=== PATIENT | male | born 1950 | race Caucasian/White ===

== ENCOUNTER 2020-01-06 14:09 | Outpatient (CLI) | payer MEDICARE ==
--- NOTE | 2020-01-06 15:30 | ULT ---
EXAM: Left lower extremity venous Doppler US HISTORY: left lower extremity edema and pain FINDINGS: Grayscale, color-flow, Doppler evaluation, spectral analysis of the left lower extremity venous struc tures is performed with 2-D imaging. The left common femoral, superficial femoral, popliteal, posterior tibial, proximal greater saphenous and profunda femoral veins are imaged. There is normal luminal compressibility, flow, and augmentation the visualized deep venous structures of the left lower extremity. IMPRESSION: No evidence of a deep vein thrombosis in the left lower extremity.
== END 2020-01-06 14:10 | disposition home or self-care (01) ==
LOC: BICULT 14:09
DX: M79.89 Other specified soft tissue disorders (principal)

== ENCOUNTER 2021-06-18 15:22 | Outpatient (CLI) | payer MEDICARE | END 2021-06-18 15:23 | disposition home or self-care (01) | LOC: RAD-FRANK 15:22 | PROVIDERS: ATTEND Nurse Practitioner Family | DX: U07.1 COVID-19 (principal); R91.8 Other nonspecific abnormal finding of lung field | CPT/HCPCS: 71046 ==

== ENCOUNTER 2022-12-06 09:22 | Outpatient (CLI) | payer MEDICARE | END 2022-12-06 09:23 | disposition home or self-care (01) | LOC: RAD-FRANK 09:22 | PROVIDERS: ATTEND Nurse Practitioner Family | DX: M25.521 Pain in right elbow (principal) ==

== ENCOUNTER 2023-09-22 18:07 | Emergency (ER) | payer MEDICARE ==
[2023-09-22 19:16] LABS: #Eosinphils 0.1 thou/uL (0.0-0.7); #Monocytes 0.6 thou/uL (0.11-0.59); #Neutrophils 4.6 thou/uL (1.40-6.50); %Basophils 0.3 % (0.0-1.0); %Eosinophils 1.4 % (0.0-10.0); %Lymphocytes 9.2 % (21.0-51.0); %Monocytes 10.1 % (0.0-10.0); %Neutrophils 78.5 % (42.0-75.0); Hematocrit 45.6 % (42.0-52.0); Hemoglobin 15.2 g/dL (14.0-18.0); Mean Corpuscular HGB CONC 33.3 g/dL (32.0-36.0); Mean Corpuscular Volume 93.1 fl (78.0-98.0); Mean Platelet Volume 11.2 fL (7.4-10.4); Platelet Count 150 10x3/uL (130-400); White Blood Cell (WBC) Count 5.8 10x3/uL (4.8-10.8)
[2023-09-22 19:41] LABS: ALT (SGPT) 35 U/L (8-55); AST (SGOT) 36 U/L (5-34); Albumin 3.8 g/dL (3.4-4.8); Alkaline Phosphatase 60 U/L (40-110); Anion Gap 14 mmol/L (10-20); BUN (Urea Nitrogen) 23 mg/dL (8.4-25.7); Bilirubin, Total 0.4 mg/dL (0.2-1.2); Calc. Creatinine Clearance 0 mL/min (70-130); Calcium 9.3 mg/dL (7.8-10.44); Carbon Dioxide 25 mmol/L (23-31); Chloride 102 mmol/L (98-107); Estimated GFR 63; Globulin 2.3 g/dL (2.4-3.5); Glucose 132 mg/dL (83-110); Lipase 30 U/L (8-78); Magnesium 1.9 mg/dL (1.6-2.6); Potassium 4.6 mmol/L (3.5-5.1); Protein, Total 6.1 g/dL (5.8-8.1); Sodium 136 mmol/L (136-145)
[2023-09-22 19:42] LABS: Troponin I 0.022 ng/mL (< 0.028)
== END 2023-09-22 23:41 | disposition home or self-care (01) ==
LOC: ERS 18:07
DX: R07.2 Precordial pain (principal); I25.2 Old myocardial infarction; E78.5 Hyperlipidemia, unspecified; Z79.899 Other long term (current) drug therapy; Z95.1 Presence of aortocoronary bypass graft
CPT/HCPCS: 36415; 71045; 80053; 83690; 83735; 84484; 85025; 93005